=== PATIENT | female | born 1985 | race Caucasian/White ===

== ENCOUNTER 2016-04-14 07:15 | Outpatient (CLI) | payer MEDICAID | END 2016-04-14 07:16 | DX: Z13.9 Encounter for screening, unspecified (principal); R53.83 Other fatigue; E53.8 Deficiency of other specified B group vitamins ==

== ENCOUNTER 2016-07-25 14:23 | Outpatient (CLI) | payer MEDICAID | END 2016-07-25 14:24 | disposition critical access hospital (66) | LOC: EMS 14:23 | PROVIDERS: ATTEND Surgery | DX: T50.902A Poisoning by unspecified drugs, medicaments and biological substances, intentional self-harm, initial encounter (principal) | CPT/HCPCS: A0425; A0429 ==

== ENCOUNTER 2016-07-25 14:40 | Emergency (ER) | payer MEDICAID ==
--- NOTE | 2016-07-25 14:57 | ED Physician Documentation ---
PD HPI MHE - Stated complaint Stated Complaint: MHE/SI - Chief complaint Chief Complaint: MHE - History obtained from History obtained from: Patient, EMS - History of Present Illness Primary symptom: Self harm - OD Timing - onset: Unknown Pain level max: 0 Pain level now: 0 Contributing factors: Family Similar symptoms before: Diagnosis (anxiety) Recently seen: Not recently seen - Additional information Additional information: States that she took extra propanolol and lisinopril today. Unclear if she was trying to hurt herself per EMS because she is concerned about her son being taken away. Review of Systems Unable to obtain: Intoxicated, Uncooperative PD PAST MEDICAL HISTORY - Past Medical History Past Medical History: Yes Psych: Anxiety - Past Surgical History Past Surgical History: No - Present Medications Home Medications: Ambulatory Orders Medication Instructions Recorded Confirmed Cyclobenzaprine [Flexeril] 10 mg PO TID PRN #20 tablet 01/08/16 Lidocaine Patch 5% [Lidoderm Patch] 1 each TOP DAILY PRN #10 patch 01/08/16 Lisinopril/Hydrochlorothiazide 1 each PO DAILY 07/25/16 07/25/16 [Lisinopril-Hctz 20-12.5 mg Tab] Propranolol HCl 40 mg PO BID 07/25/16 07/25/16 - Allergies Allergies/Adverse Reactions: Allergies Allergy/AdvReac Type Severity Reaction Status Date / Time No Known Drug Allergies Allergy Verified 01/08/16 17:21 - Living Situation Living Situation: reports: With family Living Arrangement: reports: At home - Social History Does the pt drink ETOH?: Yes ETOH Use: Liquor - Family History Family history: reports: Non contributory PD ED PE NORMAL - Vitals Vital signs reviewed: Yes - General General: Alert and oriented X 3, Well developed/nourished, Other (Appears very anxious.) - HEENT HEENT: PERRL, Moist mucous membranes, Pharynx benign - Neck Neck: Supple, no meningeal sign - Cardiac Cardiac: RRR, Strong equal pulses - Respiratory Respiratory: No respiratory distress, Clear bilaterally - Abdomen Abdomen: Soft, Non tender, Non distended - Back Back: No spinal TTP - Derm Derm: Warm and dry, No rash - Extremities Extremities: No edema, No calf tenderness / cord - Neuro Neuro: Alert and oriented X 3, No motor deficit, No sensory deficit - Psych Psych: Other (Anxious, tearful) Results - Vitals Vitals: Vital Signs - 24 hr 07/25/16 07/25/16 07/25/16 14:42 16:20 17:23 Temperature 37.7 C H Heart Rate 102 H 84 83 Respiratory 28 H 18 18 Rate Blood Pressure 148/91 H 98/43 L 85/42 L O2 Saturation 97 100 95 07/25/16 07/25/16 07/25/16 17:47 17:49 18:33 Temperature Heart Rate 77 82 Respiratory 16 17 Rate Blood Pressure 79/33 L 81/38 L 90/32 L O2 Saturation 95 96 07/25/16 07/25/16 07/25/16 19:11 19:18 20:00 Temperature Heart Rate 81 80 82 Respiratory 18 18 17 Rate Blood Pressure 80/39 L 98/56 L 100/65 O2 Saturation 100 100 100 07/25/16 07/25/16 07/25/16 21:00 22:10 22:37 Temperature 80 C H Heart Rate 79 80 76 Respiratory 17 16 13 Rate Blood Pressure 123/77 130/78 130/78 O2 Saturation 96 99 100 Oxygen O2 Source Room air - Labs Labs: Laboratory Tests 07/25/16 07/25/16 07/25/16 15:00 15:00 20:40 WBC 12.0 H RBC 4.49 Hgb 14.0 Hct 40.7 MCV 90.6 MCH 31.2 H MCHC 34.4 RDW 13.0 Plt Count 365 MPV 8.4 Neut # 6.8 H Lymph # 4.0 H Da[place] # 0.7 Eos # 0.4 Baso # 0.1 Absolute Nucleated RBC 0.01 Nucleated RBCs 0.0 Sodium 138 Potassium 3.1 L Chloride 104 Carbon Dioxide 20 L Anion Gap 14.0 H BUN 13 Creatinine 0.7 Estimated GFR (MDRD) 98 Glucose 109 H Calcium 9.3 Total Bilirubin 0.5 AST 78 H ALT 87 H Alkaline Phosphatase 123 H Total Protein 8.2 Albumin 4.0 Globulin 4.2 Albumin/Globulin Ratio 1.0 Lipase 21 L Urine Color Urine Clarity Urine pH Ur Specific [place] Urine Protein Urine Glucose (UA) Urine Ketones Urine Occult Blood Urine Nitrite Urine Bilirubin Urine Urobilinogen Ur Leukocyte Esterase Ur Microscopic Review Urine Culture Comments Urine HCG, Qual Salicylates < 6.0 Urine Opiates Screen NEGATIVE Ur Oxycodone Screen NEGATIVE Urine Methadone Screen NEGATIVE Ur Propoxyphene Screen NEGATIVE Acetaminophen < 10 L Ur Barbiturates Screen NEGATIVE Ur Tricyclics Screen NEGATIVE Ur Phencyclidine Scrn NEGATIVE Ur Amphetamine Screen POSITIVE H U Methamphetamines Scrn NEGATIVE U Benzodiazepines Scrn POSITIVE H Urine Cocaine Screen NEGATIVE U Cannabinoids Screen NEGATIVE Ethyl Alcohol 254.9 07/25/16 20:40 WBC RBC Hgb Hct MCV MCH MCHC RDW Plt Count MPV Neut # Lymph # [place] # Eos # Baso # Absolute Nucleated RBC Nucleated RBCs Sodium Potassium Chloride Carbon Dioxide Anion Gap BUN Creatinine Estimated GFR (MDRD) Glucose Calcium Total Bilirubin AST ALT Alkaline Phosphatase Total Protein Albumin Globulin Albumin/Globulin Ratio Lipase Urine Color YELLOW Urine Clarity CLEAR Urine pH 5.5 Ur Specific [place] 1.010 Urine Protein NEGATIVE Urine Glucose (UA) NEGATIVE Urine Ketones NEGATIVE Urine Occult Blood NEGATIVE Urine Nitrite NEGATIVE Urine Bilirubin NEGATIVE Urine Urobilinogen 0.2 (NORMAL) Ur Leukocyte Esterase NEGATIVE Ur Microscopic Review NOT INDICATED Urine Culture Comments NOT INDICATED Urine HCG, Qual NEGATIVE Salicylates Urine Opiates Screen Ur Oxycodone Screen Urine Methadone Screen Ur Propoxyphene Screen Acetaminophen Ur Barbiturates Screen Ur Tricyclics Screen Ur Phencyclidine Scrn Ur Amphetamine Screen U Methamphetamines Scrn U Benzodiazepines Scrn Urine Cocaine Screen U Cannabinoids Screen Ethyl Alcohol PD MEDICAL DECISION MAKING - ED course Complexity details: reviewed results, re-evaluated patient, considered differential, d/w patient, d/w safety and health consultant ED course: Patient is a 31-year-old female who reportedly took extra lisinopril/ hydrochlorothiazide as well as propanolol today at home. This was reportedly 4 hours prior to arrival. She was not bradycardic or hypotensive here. She was actually quite agitated initially. She was able to be calm down and then was conversant. She has been dealing with a lot of life stressors at home including her sister, who she moved here to live with, being deployed. Patient has an 8-year-old son at home. She is going through a divorce. She also has a father with stage IV cancer. She is from [place] and is only been here approximately 6 months. Does not feel like she has anyone to help her here. Has been diagnosed with depression, anxiety and possible bipolar disorder. She was maintained quite well on Ativan 0.5 mg once a day reportedly in [place], PCP here would not prescribe this. She states that she has been feeling less hopeful, but does not want to . Does not feel suicidal. She states that she wants to live for her son. Social work was consulted and evaluated the patient, resources were given on the next day appointment with [facility]. The patient was allowed to sober in the emergency department, given IV fluids. Did have transient hypotension, but no bradycardia. She is ambulating without difficulty after being allowed to sober. She denies any suicidal or homicidal ideation at this time. She is able to contract for safety. She is very well-appearing, nontoxic. We did discuss her alcohol use and the need for treatment for this as well. She states that she will follow up with [facility] as previously outlined. Also given information for the crisis line. Her son is safe at home with her roommate. Patient counseled regarding signs and symptoms for which I believe and urgent re-evaluation would be necessary. Patient with good understanding of and agreement to plan and is comfortable going home at this time This document was made in part using voice recognition software. While efforts are made to proofread this document, sound alike and grammatical errors may occur. Pills were counted in the pill bottles and is not missing a significant amount of medications. Departure - Departure Disposition: 01 Home, Self Care Clinical Impression: Depression Qualifiers: Depression Type: unspecified Qualified Code(s): F32.9 - Major depressive disorder, single episode, unspecified Alcoholic intoxication Qualifiers: Complication of substance-induced condition: uncomplicated Qualified Code(s): F10.120 - Alcohol abuse with intoxication, uncomplicated Condition: Good Instructions: ED Depression, ED Alcohol Intoxication Follow-Up: [facility] [Provider Group] [facility] [Provider Group] [facility] [Provider Group] Comments: You need to follow up with [facility] as directed by Jess today. You can call the crisis line any time of day or night to speak with someone. Return if you feel suicidal or worsen. You also need to stop drinking alcohol as this is making your depression worse. Crisis Line [facility] [phone] Discharge Date/Time: 07/25/16 22:38
[2016-07-25 15:11] LABS: BASOPHILS # (AUTO) 0.1 10^3/uL (0.0-0.1); BASOPHILS % (AUTO) 1.2 %; EOSINOPHILS # (AUTO) 0.4 10^3/uL (0.0-0.7); HCT - HEMATOCRIT 40.7 % (37.0-47.0); LYMPHOCYTES % (AUTO) 33.6 %; MEAN CORPUSCULAR HEMOGLOBIN 31.2 pg (27.0-31.0); MEAN CORPUSCULAR HGB CONC 34.4 g/dL (32.0-36.0); MEAN CORPUSCULAR VOLUME 90.6 fL (81.0-99.0); MEAN PLATELET VOLUME 8.4 fL (7.9-10.8); MONOCYTES # (AUTO) 0.7 10^3/uL (0.0-1.0); MONOCYTES % (AUTO) 5.5 %; NEUTROPHILS # (AUTO) 6.8 10^3/uL (1.5-6.6); NEUTROPHILS % (AUTO) 56.7 %; RED BLOOD COUNT 4.49 10^6/uL (4.20-5.40)
[2016-07-25] MEDS ORDERED: LORazepam 0.5 MG TABLET ONE (15:27)
[2016-07-25 15:29] LABS: BILIRUBIN,TOTAL 0.5 mg/dL (0.2-1.0); BUN - BLOOD UREA NITROGEN 13 mg/dL (6-20); CALCIUM 9.3 mg/dL (8.5-10.3); CARBON DIOXIDE - CO2 20 mmol/L (21-32); CHLORIDE 104 mmol/L (101-111); CREATININE 0.7 mg/dL (0.4-1.0); GFR - MDRD 98 (>89); GLUCOSE 109 mg/dL (70-100); LIPASE 21 U/L (22-51); POTASSIUM 3.1 mmol/L (3.5-5.0); SALICYLATE < 6.0 mg/dL; SODIUM 138 mmol/L (135-145); TOTAL PROTEIN 8.2 g/dL (6.7-8.2)
[2016-07-25] MEDS: LORazepam 0.5 MG TABLET PO STA (15:29)
[2016-07-25 15:31] LABS: ACETAMINOPHEN < 10 ug/mL (10-30)
[2016-07-25] MEDS: SODIUM CHLORIDE 0.9% 1,000 ML IV ONE ×4 (16:33→21:03)
[2016-07-25 20:50] LABS: BILIRUBIN,URINE NEGATIVE (NEGATIVE); PH,URINE 5.5 PH (5.0-7.5)
[2016-07-25 20:54] LABS: HCG UR QUAL NEGATIVE; UA CHARGE (STRIP ONLY) YES; UR CULTURE IF IND NOT INDICATED
[2016-07-25 22:13] VITALS: BP 130/78
== END 2016-07-25 22:38 | disposition home or self-care (01) ==
LOC: EDUNIT# → ED 14:40
DX: F32.9 Major depressive disorder, single episode, unspecified (principal); F10.129 Alcohol abuse with intoxication, unspecified; R45.851 Suicidal ideations
CPT/HCPCS: 36415; 80053; 80306; 80307; 80320; 80329; 81001; 81003; 81025; 83690; 85025; 87086; 96360; 96361; 99284; 99285

== ENCOUNTER 2016-12-13 16:45 | Emergency (ER) | payer MEDICAID ==
[2016-12-13 16:54] VITALS: BP 131/76
--- NOTE | 2016-12-13 17:09 | ED Physician Documentation ---
PD HPI SKIN - Stated complaint Stated Complaint: RT TOE PX - Chief complaint Chief Complaint: Ext Problem - History obtained from History obtained from: Patient - History of Present Illness Timing - onset: How many weeks ago (2-3) Timing - duration: Weeks (2-3 weeks of redness, pain and tenderness at corner of great toe nailbed. Had seen PCP and was given Rx for Keflex for it and she has been soaking toe. The redness decreased some but it is twister tender paper and there is lump of tissue grown from the corner. Had not had removal of the ingrown portion. She has also had pain at medial ankle with walking since a twisting injury about 3 weeks ago. Her PCP was wanting to get xray of it.) Timing - details: Gradual onset, Still present Location: Other (right great toe nailbed and end of toe medial side.) Quality / character: Painful, Discolored (red), Swelling. No: Draining Associated symptoms: No: Fever, Joint pain, N/V/D Similar symptoms before: Has not had sx before Recently seen: Clinic (about 2 weeks ago for toe, and was given Rx of Keflex. 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 - Present Medications Home Medications: Ambulatory Orders Medication Instructions Recorded Confirmed Lisinopril/Hydrochlorothiazide 1 each PO DAILY 07/25/16 07/25/16 [Lisinopril-Hctz 20-12.5 mg Tab] Propranolol HCl 40 mg PO BID 07/25/16 07/25/16 Sulfamethox/Trimeth 800/160 1 each PO BID #10 tablet 12/13/16 [Bactrim Ds 800/160] - Allergies Allergies/Adverse Reactions: Allergies Allergy/AdvReac Type Severity Reaction Status Date / Time No Known Drug Allergies Allergy Verified 12/13/16 16:51 - Social History Does the pt smoke?: No Smoking Status: Never smoker Does the pt drink ETOH?: Yes Does the pt have substance abuse?: No - Immunizations Immunizations are current?: Yes PD ED PE NORMAL - Vitals Vital signs reviewed: Yes - General General: Alert and oriented X 3, No acute distress, Well developed/nourished - Derm Derm: Normal color, Warm and dry - Extremities Extremities: Other (medial aspect right ankle and dorsomedial foot with tenderness without effusion nor deformity. No redness nor swelling at that area. The great toe nailbed with ingrown corner of nail medially and some outgrowth of granulation tissue there about 1/2 cm size. It is very tender. There is redness and swelling around nailbed corner. No purulence. ) - Neuro Neuro: Alert and oriented X 3, No motor deficit, No sensory deficit Results - Vitals Vitals: Vital Signs - 24 hr 12/13/16 16:48 Temperature 36.5 C Heart Rate 108 H Respiratory 16 Rate Blood Pressure 131/76 H O2 Saturation 97 Oxygen O2 Source Room air - Rads (name of study) right ankle Radiology: Prelim report reviewed, EMP read contemporaneously (no fractures) Procedures - General procedure General procedure: Digital block of the great toe was performed on the medial side using Marcaine. With good anesthesia the ingrown portion of the nail was trimmed out with scissors and the granulation tissue was excised with scissors and scalpel. Some Monsel solution was used to decrease the bleeding. Bandage was applied. There is no purulence from the area. There was some slight redness of the tissue around the nailbed and so we will treated for infection for a few days. PD MEDICAL DECISION MAKING - ED course Complexity details: reviewed results, considered differential, d/w patient Departure - Departure Disposition: 01 Home, Self Care Clinical Impression: Ingrown right big toenail Ankle sprain Qualifiers: Encounter type: initial encounter Involved ligament of ankle: deltoid ligament Laterality: right Qualified Code(s): S93.421A - Sprain of deltoid ligament of right ankle, initial encounter Condition: Stable Record reviewed to determine appropriate education?: Yes Instructions: ED Ingrown Toenail Excised, ED Sprain Ankle Follow-Up: CHAVA RAMOS [Primary Care Provider] - Prescriptions: Sulfamethox/Trimeth 800/160 [Bactrim Ds 800/160] 1 each PO BID #10 tablet Comments: For the toe, soak it in warm water and clean with soap and water 2-3 times a day and apply ointment. There does appear to be some slight infection so Bactrim twice daily for 3-5 days until it is looking all better. Tylenol or ibuprofen if needed for pain and at the hydrocodone really if needed for worse pain and should be likely 1 or 2 days at most. Most likely the Tylenol or ibuprofen will be adequate. Recheck if problems with healing. Keep the end of the toenail trimmed back well as this is healing to reduce pressure on the corner. For the ankle using ankle brace when up and around for the next 7-10 days to see if that allows for adequate healing of the ligaments. Discharge Date/Time: 12/13/16 18:38
[2016-12-13] MEDS ORDERED: BUPIVACAINE 0.5% PF 30 ML VIAL SUBQ STA (17:18)
[2016-12-13] MEDS ORDERED: SULFAMETH/TRIMETH DS 800/160 MG TABLET PO STA (17:20)
[2016-12-13] MEDS ORDERED: SULFAMETH/TRIMETH DS 800/160 MG TABLET PO ONE (17:45)
[2016-12-13] MEDS ORDERED: BUPIVACAINE 0.5% PF 30 ML VIAL ONE (17:46)
--- NOTE | 2016-12-13 18:05 | XRAY Preliminary Report ---
Exam: XR ANKLE 3 VIEW RT IMPRESSION: Soft tissue swelling without acute fracture or subluxation. [facility] SITE ID: [id number]
--- NOTE | 2016-12-13 18:07 | XRAY Report ---
EXAM: RIGHT ANKLE RADIOGRAPHY EXAM DATE: 12/13/2016 05:39 PM. CLINICAL HISTORY: Ankle injury 1 month ago, persistent pain. COMPARISON: None. TECHNIQUE: 3 views. FINDINGS: Bones: Normal. No fractures or bone lesions. Joints: Normal. No effusion. No subluxations. The ankle mortise is normally aligned. Soft Tissues: There is soft tissue swelling present. There is spurring of the anterior talus. IMPRESSION: Soft tissue swelling without acute fracture or subluxation. [facility] Referring Provider Line: [phone] SITE ID: [id number]
[2016-12-13] MEDS ORDERED: HYDROcod/ACET 5/325 Prepack 6 PO ONE ×2 (18:30→18:33)
== END 2016-12-13 18:38 | disposition home or self-care (01) ==
LOC: ED 16:45
DX: L60.0 Ingrowing nail (principal); L08.9 Local infection of the skin and subcutaneous tissue, unspecified; L92.9 Granulomatous disorder of the skin and subcutaneous tissue, unspecified; S93.421A Sprain of deltoid ligament of right ankle, initial encounter; X50.1XXA Overexertion from prolonged static or awkward postures, initial encounter; I10 Essential (primary) hypertension
CPT/HCPCS: 11765; 73610; 99283; A9270

== ENCOUNTER 2017-03-30 09:24 | Emergency (ER) | payer MEDICAID ==
--- NOTE | 2017-03-30 12:19 | ED Physician Documentation ---
PD HPI SKIN - Stated complaint Stated Complaint: TOE PX - Chief complaint Chief Complaint: Ext Problem - History obtained from History obtained from: Patient - History of Present Illness Timing - onset: How many days ago (several) Timing - duration: Days Timing - details: Gradual onset, Still present (pain dorner of great toe nail and increasing with redness. 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 03/30/17 Sulfamethox/Trimeth 800/160 1 each PO BID #10 tablet 03/30/17 [Bactrim Ds 800/160] Tramadol HCl 50 mg PO Q6H PRN #15 tablet 03/30/17 clonazePAM [Clonazepam] 1 mg PO PRN PRN 03/30/17 03/30/17 - Allergies Allergies/Adverse Reactions: Allergies Allergy/AdvReac Type Severity Reaction Status Date / Time No Known Drug Allergies Allergy Verified 03/30/17 09:47 - Social History Does the pt smoke?: No Smoking Status: Never smoker Does the pt drink ETOH?: Yes Does the pt have substance abuse?: No - Immunizations Immunizations are current?: Yes - POLST Patient has POLST: No PD ED PE NORMAL - Vitals Vital signs reviewed: Yes - General General: Alert and oriented X 3, Well developed/nourished - Derm Derm: Normal color, Warm and dry - Extremities Extremities: Other (right great toe nailbed corner with redness and swelling, white color under the skin. Redness extends to IP joint area. No proximal streaking. ) - Neuro Neuro: No motor deficit, No sensory deficit Results - Vitals Vitals: Oxygen O2 Source Room air - Labs Labs: Microbiology 03/30/17 13:20 Wound Culture - Final Toe - Right Big Staphylococcus Aureus Procedures - Abscess I&D (location) toenail right Preparation: Lidocaine 2 %, LET Incision: Incised with scalpel, Purulent drainage, Irrigated, Culture obtained, Other (ingrown corner of nail removed) Other: Pt tolerated well PD MEDICAL DECISION MAKING - ED course Complexity details: considered differential, d/w patient Departure - Departure Disposition: Home, Self Care Clinical Impression: Ingrown right big toenail, Paronychia Condition: Stable Record reviewed to determine appropriate education?: Yes Instructions: ED Paronychia Ch Follow-Up: Priscilla Owen MD [Primary Care Provider] - Prescriptions: Mupirocin 1 applic TP TID #15 oint...g. Sulfamethox/Trimeth 800/160 [Bactrim Ds 800/160] 1 each PO BID #10 tablet Tramadol HCl 50 mg PO Q6H PRN #15 tablet PRN Reason: Pain Comments: 2-3 times a day in warm water to promote drainage. Apply mupirocin topical antibiotic. Try to keep the corner of the nail trimmed while away from the edge to trying it to come out straighter. Since there is some infection of the tissue, will also give Bactrim antibiotic twice a day for 5 days. Recheck if not better during that time. The area had the small abscess will likely lose the skin over the roof of that but it should heal okay. Add Tylenol or ibuprofen if needed for pain. Add tramadol if needed for worse pain. Off the foot today due to discomfort and resume activity tomorrow. Forms: Activity restrictions Discharge Date/Time: 03/30/17 13:47
[2017-03-30] MEDS ORDERED: LIDOCAINE 2% 10 ML MDV SUBQ STA (12:29)
[2017-03-30] MEDS ORDERED: LIDOCAINE-EPINEPH-TETRACAINE 3 ML SYRINGE TOP STA (12:29)
[2017-03-30 13:49] VITALS: BP 132/75
== END 2017-03-30 13:47 | disposition home or self-care (01) ==
LOC: ED 09:24
DX: L60.0 Ingrowing nail (principal); L03.031 Cellulitis of right toe; I10 Essential (primary) hypertension
CPT/HCPCS: 10060; 87070; 87077; 87205; 99283

== ENCOUNTER 2017-04-07 21:57 | Emergency (ER) | payer MEDICAID ==
[2017-04-07 22:02] VITALS: BP 122/78
[2017-04-07 22:15] LABS: BILIRUBIN,URINE NEGATIVE (NEGATIVE); CLARITY,URINE CLEAR (CLEAR); GLUCOSE, URINE (UA) NEGATIVE (NEGATIVE); KETONES,URINE (UA) TRACE mg/dL (NEGATIVE); LEUKOCYTE ESTERASE, URINE NEGATIVE (NEGATIVE); NITRITE,URINE NEGATIVE (NEGATIVE); OCCULT BLOOD,URINE NEGATIVE (NEGATIVE); PH,URINE 5.5 PH (5.0-7.5); PROTEIN,URINE NEGATIVE (NEGATIVE); UROBILINOGEN,URINE 0.2 (NORMAL) E.U./dL (NORMAL)
[2017-04-07 22:17] LABS: HCG UR QUAL NEGATIVE
--- NOTE | 2017-04-07 23:03 | ED Physician Documentation ---
PD HPI ABD PAIN - Stated complaint Stated Complaint: LOWER ABD PX - Chief complaint Chief Complaint: Abd Pain - History obtained from History obtained from: Patient - History of Present Illness Timing - onset: How many weeks ago (2) Timing - details: Gradual onset, Intermittant Quality: Cramping, Aching, Fullness/distended Location: All over / everywhere, LLQ Associated symptoms: Nausea, Diarrhea. No: Vomiting Similar symptoms before: Work up / diagnostics, Treatment Recently seen: Clinic - Additional information Additional information: Patient is a 31 year old female with a history of chronic abdominal pain who is presenting to the emergency department for abdominal pain and diarrhea. Patient states that she was getting a work up for irritable bowel in her home [facility]. patient states that she had most tests done aside from the colonoscopy. Patient states that she normally has about 3 loose bowel movements a day. patient states that she saw a clinic doctor today who started her on metamucil. Patient states that she came to the emergency department for further care. Review of Systems Constitutional: denies: Fever, Chills Eyes: reports: Reviewed and negative Ears: reports: Reviewed and negative Nose: reports: Reviewed and negative Throat: reports: Reviewed and negative Cardiac: denies: Chest pain / pressure, Palpitations Respiratory: denies: Dyspnea, Cough GI: reports: Abdominal Pain, Nausea, Diarrhea. 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 03/30/17 Sulfamethox/Trimeth 800/160 1 each PO BID #10 tablet 03/30/17 [Bactrim Ds 800/160] Tramadol HCl 50 mg PO Q6H PRN #15 tablet 03/30/17 clonazePAM [Clonazepam] 1 mg PO PRN PRN 03/30/17 03/30/17 - Allergies Allergies/Adverse Reactions: Allergies Allergy/AdvReac Type Severity Reaction Status Date / Time No Known Drug Allergies Allergy Verified 03/30/17 09:47 - Social History Does the pt smoke?: No Smoking Status: Never smoker Does the pt drink ETOH?: Yes Does the pt have substance abuse?: No - Immunizations Immunizations are current?: Yes - POLST Patient has POLST: No PD ED PE NORMAL - Vitals Vital signs reviewed: Yes - General General: Alert and oriented X 3, No acute distress - HEENT HEENT: Atraumatic, PERRL, Moist mucous membranes - Neck Neck: Supple, no meningeal sign - Cardiac Cardiac: RRR, No murmur - Respiratory Respiratory: No respiratory distress - Abdomen Abdomen: Soft - Derm Derm: Normal color, Warm and dry, No rash - Extremities Extremities: No deformity, No edema - Neuro Neuro: Alert and oriented X 3, No motor deficit, No sensory deficit, Normal speech - Psych Psych: Normal mood PD ED PE EXPANDED - Abdomen Abdomen: Tender to palpation, LLQ. No: Rebound, Guarding Results - Vitals Vitals: Vital Signs - 24 hr 04/07/17 21:59 Temperature 37.0 C Heart Rate 101 H Respiratory 16 Rate Blood Pressure 122/78 O2 Saturation 96 Oxygen O2 Source Room air - Labs Labs: Laboratory Tests 04/07/17 04/07/17 22:10 22:12 Urine Color YELLOW Urine Clarity CLEAR Urine pH 5.5 Ur Specific [place] >=1.030 H >=1.030 H Urine Protein NEGATIVE Urine Glucose (UA) NEGATIVE Urine Ketones TRACE Urine Occult Blood NEGATIVE Urine Nitrite NEGATIVE Urine Bilirubin NEGATIVE Urine Urobilinogen 0.2 (NORMAL) Ur Leukocyte Esterase NEGATIVE Ur Microscopic Review NOT INDICATED Urine Culture Comments NOT INDICATED Urine HCG, Qual NEGATIVE PD MEDICAL DECISION MAKING - ED course Complexity details: reviewed old records, reviewed results, re-evaluated patient , considered differential, d/w patient ED course: Patient was seen and examined at bedside. Patient was told that we would check blood work and discuss ct imaging. Patient eloped from the emergency department before any diagnostics were performed. Departure - Departure Disposition: ED El[place] Clinical Impression: Abdominal pain Condition: Good Discharge Date/Time: 04/07/17 22:36
== END 2017-04-07 22:36 | disposition left against medical advice (07) ==
LOC: ED 21:57
DX: R10.32 Left lower quadrant pain (principal); Z53.29 Procedure and treatment not carried out because of patient's decision for other reasons; I10 Essential (primary) hypertension; K58.0 Irritable bowel syndrome with diarrhea
CPT/HCPCS: 80053; 81001; 81003; 81025; 83690; 85025; 87086; 99282; 99283

== ENCOUNTER 2017-04-12 16:33 | Outpatient (CLI) | payer MEDICAID | END 2017-04-12 16:34 | disposition home or self-care (01) | LOC: LAB.R 16:33 | PROVIDERS: ATTEND Obstetrics & Gynecology | DX: R10.2 Pelvic and perineal pain (principal); Z11.3 Encounter for screening for infections with a predominantly sexual mode of transmission | CPT/HCPCS: 87491; 87591 ==

== ENCOUNTER 2017-11-14 15:42 | Emergency (ER) | payer MEDICAID ==
[2017-11-14 15:51] VITALS: BP 140/77
--- NOTE | 2017-11-14 16:07 | ED Physician Documentation ---
History of Present Illness - Stated complaint Stated Complaint: BACK PX - Chief complaint Chief Complaint: Back Pain - History obtained from History obtained from: Patient - History of Present Illness Timing: How many days ago (3) Pain level max: 6 Pain level now: 5 - Additonal information Additional information: Patient is a 32-year-old female who presents complaining of acute on chronic back pain. Attempted to get a refill of her tramadol. Has an appointment with her PCP tomorrow. No numbness or tingling. No IV drug use. No fevers. No trauma. No loss of bowel or bladder control. Not , breast-feeding or trying to become . Review of Systems Constitutional: denies: Fever, Chills : denies: Dysuria, Frequency, Hesitancy, Now [facility] PAST MEDICAL HISTORY - Past Medical History Past Medical History: Yes Cardiovascular: Hypertension GI: Other Psych: Anxiety - Past Surgical History Past Surgical History: Yes /[employer] [place]: section - Present Medications Home Medications: Ambulatory Orders Medication Instructions Recorded Confirmed Tramadol HCl 50 mg PO Q6H PRN #15 tablet 03/30/17 clonazePAM [Clonazepam] 1 mg PO PRN PRN 03/30/17 03/30/17 Tramadol HCl 50 mg PO Q6H PRN #10 tablet 11/14/17 - Allergies Allergies/Adverse Reactions: Allergies Allergy/AdvReac Type Severity Reaction Status Date / Time No Known Drug Allergies Allergy Verified 11/14/17 15:52 - Social History Does the pt smoke?: No Smoking Status: Never smoker Does the pt drink ETOH?: Yes Does the pt have substance abuse?: No - Immunizations Immunizations are current?: Yes - POLST Patient has POLST: No PD ED PE NORMAL - Vitals Vital signs reviewed: Yes - General General: Alert and oriented X 3, No acute distress - HEENT HEENT: Moist mucous membranes - Neck Neck: Supple, no meningeal sign - Cardiac Cardiac: RRR - Respiratory Respiratory: No respiratory distress, Clear bilaterally - Back Back: No spinal TTP, Other (no paraspinal spasm, no step off or deformity.) - Derm Derm: Warm and dry - Extremities Extremities: No edema, Other (Normal bilateral lower extremity patellar and ankle jerk reflexes. Normal great toe extension bilaterally. no saddle anesthesia) - Neuro Neuro: Alert and oriented X 3 - Psych Psych: Normal mood, Normal affect Results - Vitals Vitals: Vital Signs - 24 hr 11/14/17 15:48 Temperature 36.2 C L Heart Rate 74 Respiratory 26 H Rate Blood Pressure 140/77 H O2 Saturation 100 Oxygen O2 Source Room air PD MEDICAL DECISION MAKING - ED course Complexity details: considered differential (No cauda equina, no spinal epidural abscess, no fracture, no aortic dissection or evidence of aneursym rupture), d/w patient ED course: Patient is a 32-year-old female with chronic back pain here for a refill of her tramadol. Sees her PCP tomorrow. Was given a small prescription for tramadol and will have her follow-up with her doctor as scheduled. No acute neurological findings. No spinal epidural abscess, cauda equina or fracture. Patient counseled regarding signs and symptoms for which I believe and urgent re- evaluation would be necessary. Patient with good understanding of and agreement to plan and is comfortable going home at this time This document was made in part using voice recognition software. While efforts are made to proofread this document, sound alike and grammatical errors may occur. - Sepsis Event Vital Signs: Vital Signs - 24 hr 11/14/17 15:48 Temperature 36.2 C L Heart Rate 74 Respiratory 26 H Rate Blood Pressure 140/77 H O2 Saturation 100 Oxygen O2 Source Room air Departure - Departure Disposition: 01 Home, Self Care Clinical Impression: Back pain Qualifiers: Back pain location: low back pain Chronicity: acute Back pain laterality: bilateral Sciatica presence: without sciatica Qualified Code(s): M54.5 - Low back pain Condition: Good Instructions: ED Neck Back Pain General Follow-Up: Priscilla Owen MD [Primary Care Provider] - Tomorrow Prescriptions: Tramadol HCl 50 mg PO Q6H PRN #10 tablet PRN Reason: back pain Comments: Follow-up with your doctor for further care and medications. Return if you worsen. Discharge Date/Time: 11/14/17 16:10
== END 2017-11-14 16:10 | disposition home or self-care (01) ==
LOC: ED 15:42
DX: M54.9 Dorsalgia, unspecified (principal); G89.29 Other chronic pain
CPT/HCPCS: 99281; 99283